=== PATIENT | female | born 1935 | race Caucasian/White ===

== ENCOUNTER 2023-09-11 18:36 | Inpatient (IN) | payer MEDICARE, OTHER, SELFPAY ==
[2023-09-11] VITALS (9 sets, daily range): BP systolic 114–178; BP diastolic 62–77; BMI 20.7; BMI 22.0
[2023-09-11 12:15] LABS: % Basophils 0.3 % (0-2); % Eosinophils 0.8 % (0-6); % Immature Granulocytes 0.3 % (0-0.5); % Lymphocytes 5.8 % (20.5-51.1); % Monocytes 4.8 % (1.7-9.3); Absolute Eosinophils 0.1 10^3/uL (0-0.7); Absolute Lymphocytes 0.5 10^3/uL (1.2-3.4); Absolute Monocytes 0.4 10^3/uL (0.1-0.6); Absolute Neutrophils 7.8 10^3/uL (1.4-6.5); Hematocrit 30.4 % (37.0-47.0); Hemoglobin 9.9 g/dL (12.0-16.0); Mean Corp Hgb Conc. 32.6 g/dL (33.0-37.0); Mean Corpuscular Hgb 31.4 pg (27.0-31.0); Mean Corpuscular Volume 96.5 fL (81.0-99.0); Mean Platelet Volume 9.6 fL (7.4-10.4); Nucleated Red Blood Cells % 0 %; Platelet Count 273 10^3/uL (130-400); Red Blood Cell Count 3.15 10^6/uL (4.20-5.40); Red Cell Dist. Width 15.4 % (11.5-14.5); White Blood Cell Count 8.8 10^3/uL (4.8-10.8)
[2023-09-11 12:31] LABS: INR 0.99; PT 12.9 Sec (11.4-14.6)
[2023-09-11 12:34] LABS: ALT (SGPT) 17 U/L (0-35); AST (SGOT) 32 U/L (14-36); Albumin 3.9 g/dl (3.5-5.0); Alkaline Phosphatase 73 U/L (38-126); Blood Urea Nitrogen 26 mg/dl (7-17); Calcium 9.3 mg/dl (8.4-10.2); Carbon Dioxide 28 mmol/L (22-30); Chloride 105 mmol/L (98-107); Glucose 131 mg/dl (70-99); Potassium 5.4 mmol/L (3.5-5.1); Sodium 137 mmol/L (135-145); Total Bilirubin 0.3 mg/dl (0.2-1.3); Total Protein 6.5 g/dl (6.3-8.2); eGFR 40.05
--- NOTE | 2023-09-11 14:09 | ED.GENMED ---
History of Present Illness
General
Chief Complaint: Rectal Bleeding
Source: patient and family
Exam Limitations: none
Time Seen by Provider: 09/11/23 13:50
Nursing documentation reviewed up to this point in time: agreed with
Travel History
Have you had any contact with someone who has COVID-19?: No
Do you have any symptoms of coronavirus? Fever > 100 degrees, chills, cough, shortness of breath, sore throat, loss of taste or smell, muscle aches, or headache?: No
History of Present Illness
History of Present Illness:
The patient is an 88-year-old female who was brought in by family for at least 2 episodes of bright red and maroon-colored blood coming from her bottom. This started at around 4:00 AM today. Patient reports that she was just admitted to [facility] about a week ago for similar symptoms but did not undergo colonoscopy. She reports at that time she was on Xarelto, however, she has not had Xarelto for at least a week. She is currently on Plavix. She denies any abdominal pain and
rectal pain. She reports it seems as though the bleeding has slowed down now.
Past History
Past History
ED Past Medical History: Other (Autoimmune hepatitis)
ED Past Surgical History: Gynecological and Orthopedic
Social History
Tobacco: Former smoker
Alcohol: Occasional
Drug: None
Personal: Other
Living: other
Employment: Other
Family History
Family History: Other
Review of Systems
Review of Systems
Allergies reviewed?: Yes
All Other Systems: ROS reviewed and negative except as documented in HPI and ROS
Constitutional: Reports fatigue
EENT: Reports no symptoms
Respiratory: Reports no symptoms
Cardiac: Reports no symptoms
ABD/GI: Reports other (Blood from rectum)
: Reports no symptoms
Musculoskeletal: Reports no symptoms
Skin: Reports no symptoms
Neurological: Reports no symptoms
Endocrine: Reports no symptoms
Hematologic/Lymphatic: Reports no symptoms
Psychiatric: Reports no symptoms
Phy Exam
Physical Exam
Physical Exam:
Physical Exam
General: no apparent distress, not acutely ill
Neck: supple. no meningeal signs. normal psoterior pharynx
Heart: s1/s2 regular rate and rhythm, no murmur. equal radial pulses.
Lungs: no acute respiratory distress. clear bilaterally
Abdomen: normal bowel sounds. not tender. no CVAT. On rectal exam, there is no active bleeding but dried dark red blood around perirectal area
Neuro: alert and oriented. no focal neurological deficits
Skin: no rash
Psychiatric: well kept. interactive and cooperative
Extremities: no edema. no calf tenderness. negative homans. good distal pulses
Course
Orders/Labs/Results
Orders:
Orders
09/11/23 11:55
Type+Screen Urgent
Complete Blood Count/With Diff Urgent
Comprehensive Metabolic Panel Urgent
PT/INR [Prothrombin Time] Urgent
09/11/23 13:56
Electrocardiogram (*1) Urgent
Reason for Study: Abdominal Pain
EKG- Treatment ONCE
09/11/23 18:10
Admit/Transfer Patient As Directed
Co-Sign Provider:
Level of Care: Inpatient admission
Assign to:: Telemetry
Physician / Group: Tish Dutta
Diagnosis: GI bleed suspected Diverticular
Reason for Telemetry: Arrhythmia
Date to Stop Telemetry: 09/14/23
Time to Stop Telemetry: 11:00
Reason for Hospitalization: GI bleed suspected Diverticular
Expected length of stay greater than two midnights?: Yes
ELOS- Estimated Length of Stay in days: 2
I certify the patient meets the requirements for IP care: Yes
09/11/23 18:13
Code Status As Directed
Resuscitation Status: Full Code
09/14/23 11:00
DC Protocol for Telemetry ONCE
Abnormal Lab Results
09/11/23
11:55
RBC 3.15 L 10^6/uL
(4.20-5.40)
Hgb 9.9 L g/dL
(12.0-16.0)
Hct 30.4 L %
(37.0-47.0)
MCH 31.4 H pg
(27.0-31.0)
MCHC 32.6 L g/dL
(33.0-37.0)
RDW 15.4 H %
(11.5-14.5)
Absolute Neuts (auto) 7.8 H 10^3/uL
(1.4-6.5)
Absolute Lymphs (auto) 0.5 L 10^3/uL
(1.2-3.4)
Neutrophils % 88.0 H %
(42.2-75.2)
Lymphocytes % 5.8 L %
(20.5-51.1)
Potassium 5.4 H mmol/L
(3.5-5.1)
BUN 26 H mg/dl
(7-17)
Creatinine 1.3 H mg/dL
(0.6-1.0)
Glucose 131 H mg/dl
(70-99)
09/11/23 11:55
09/11/23 11:55
Vital Signs
Initial and Last Documented VS:
Initial Vital Signs
Temp Pulse Resp BP Pulse Ox
98.4 F 79 16 127/65 98
09/11/23 11:41 09/11/23 11:41 09/11/23 11:41 09/11/23 11:41 09/11/23 11:41
Last Documented Vital Signs
Temp Pulse Resp BP Pulse Ox
98 F 67 19 178/77 98
09/11/23 14:37 09/11/23 18:00 09/11/23 18:00 09/11/23 15:00 09/11/23 15:30
MDM/Problems Addressed
Differential Diagnosis Includes:
Hemorrhoidal bleed, diverticular bleed, upper GI bleed
MDM/Problems Addressed:
Patient presents with acute rectal bleed
Acute Exacerbation and/or Progression of Chronic Illness:
Patient is acutely hypertensive, however, there is no sign of neurological deficit or CHF
Acute Exacerbation and/or Progression of Chronic Illness: HTN
*Pulse Oximetry
Patient hypoxic: no
*EKG
Interpreted by ED Provider?: Yes
Interpretation: abnormal
Comparison EKG: no comparison EKG present
Rate: normal
Rhythm: sinus
[place]: left axis deviation
Interval: normal interval and first degree heart block
QRS Pattern: left vent hypertrophy
Ischemia: non-specific ST changes
*Engineering Intern Interpretation
Rate: normal
Interpretation: normal
Rhythm: sinus
*Critical Care Note
Total Time (30-74mins, 75-104mins- exclusive of procedures): Not Applicable
Data Reviewed
Review of Other/Old Records Reveals: Other (Office visit reviewed from Greg Rainey primary care doctor from today which explained that patient had 2 episodes of bright red rectal bleeding.)
Source: patient and family
Patient Management
Discussion with other providers: Hospitalist and Other (Radiology Aide on-call made aware of patient being admitted)
Escalation/DeEscalation of care consider admission/obs:
Patient admitted to the hospitalist for stable lower GI bleed
ED Attending Note
-
Portions of this chart may have been created with voice recognition software.� Occasional wrong word or��sound alike� substitutions may have occurred due to the inherent limitations of voice recognition software.
Discharge Plan
Departure
Patient Disposition: Admit
Date of Disposition: 09/11/23
Time of Disposition: 14:06
Presentation/result/management discussed w/ accepting MD/DO: Hospitalist
Patient with high blood pressure during this ER visit?: Yes
Condition: Good
Covid-19: Not Applicable
Discharge Problem:
Acute lower gastrointestinal bleeding
Interventions
Interventions:
*Risk Screen - Suicide Last Done: 09/11/23 11:41
*General Assessment Last Done: 09/11/23 11:41
*Neglect/Abuse Screening Last Done: 09/11/23 14:36
ED- Fall Risk Assessment Last Done: 09/11/23 14:36
*ED COVID-19 Vaccine History Last Done: 09/11/23 11:41
HS-Olqtkc-Tswqjzqunu Assessment Last Done: 09/11/23 14:39
ED- Cardiac Assessment Last Done: 09/11/23 14:39
ED- Pulmonary Assessment Last Done: 09/11/23 14:39
--- NOTE | 2023-09-11 14:45 | CON.GI ---
Addendum entered and electronically signed by Thomas Singletary MD 09/11/23 18:03:
I saw and examined the patient.
The PA's note was reviewed and I agree with the note.
Comment:
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 Pastrana at [place]) on Xarelto and Plavix with recent change last week with ASA and Plavix who
p/w painless hematochezia.� She had similar episode last week and was admitted at [place], CTA there was negative and pt was discharged after several day observation and anticoagulation regiment was changed to ASA 81mg/Plavix.
Impression / Rec:
1. Painless hematochezia - her symptoms are most consistent / suggestive of diveritcular hemorrhage, augmented by anticoagulation. Her last colonoscopy was remote (> 10 yrs prior). Hemodynamically stable, last hematochezia was several hours ago.
Hgb is ~10, which is near her baseline. No plan for endo eval at this time. If active hemorrhage occurs, then can do bleeding scan / IR embolization. Hold Plavix and change her regimen to ASA 325 mg as per [facility] vascular surgery while she's inpt,
will need DAPT upon discharge. If does ok with CLD can advance diet tomorrow.
Addendum entered and electronically signed by SALVATORE Crow 09/11/23 17:43:
discussed with Dr. dodge
Original Note:
Consultation
-
Date/Time Consultation Requested: 09/11/23 1430
Date/Time Consultation Performed: 09/11/23 1445
Requesting Provider: Lisy Foster MD
Performing Provider: SALVATORE Pierre, Thomas Singletary MD
Reason for Consultation: GI bleed
Medical History
Chief Complaint / HPI
Chief Complaint: GI bleed
History of Present Illness:
Pt is a 88yo presents with hx longstanding autoimmune hepatitis on Prednisone, breast CA with b/l mastectomy/chemo, neuropathy, diverticulosis, PAD with follow with Dr. Pastrana at [facility] and in clinical trial for surgical ? stent (clinical nurse tere
[phone]) on Xarelto and Plavix with recent change last week with ASA and Plavix. She was noted last week with large volume of red stool and went to [place]. CTA was negative and pt was discharged after several day observation and
anticoagulation regiment was changed as noted above. She now presents with 5-6 stools on 09/10 between 4am and 8 am large volumes and no stools for several hours after in ER. Last colonoscopy years ago did not recall findings.
She admits to occasional GERD with Prilosec use but otherwise denies dysphagia, nausea, vomiting, abdominal pain, or diarrhea. She typically has stool every 2-3 days. No prior EGD and colonoscopy years ago recalls as normal.
Past Medical History
Past Medical History: Cancer (breast CA with b/l mastectomy and chemo 2011) and Other (autoimmune hepatitis years ago on chronic prednisone, popliteal occlusion with stenting on lifelong Plavix/duel antiplatelet therapy, neuropathy, diverticular
disease, urinary incontinence, arthritis, macular degeneration, SARAH, vit D deficiency)
Past Surgical History: Gynecological (b/l mastectomy, hysterectomy) and Other (popliteal stent, 4 angiograms, transmet )
Social History
Tobacco: Former Smoker
Alcohol: Occasional (social )
Drug: None
Personal:
Living: With Family
Employment: Retired
Family History
Family History: Other (father with colon CA)
Allergies / Home Medications
Allergy/AdvReac Type Severity Reaction Status Date / Time
No Known Allergies Allergy Unverified 09/11/23 11:41
Medication Instructions Recorded
Afrin Nasal [place] 1 spray intranasal DAILYPRN PRN 09/11/23
nose bleeds
aspirin 81 mg tablet,delayed 81 mg PO DAILY 09/11/23
release
clopidogrel 75 mg tablet 75 mg PO QPM 09/11/23
ferrous sulfate 325 mg (65 mg 325 mg PO .SEE BELOW 09/11/23
iron) tablet (iron)
gabapentin 100 mg capsule 300 mg PO TID 09/11/23
omeprazole magnesium 20 mg 20 mg PO DAILY 09/11/23
tablet,delayed release (Prilosec
OTC)
prednisone 5 mg tablet 5 mg PO DAILY@1500 09/11/23
rosuvastatin 10 mg tablet 10 mg PO DAILY 09/11/23
sodium chloride 0.65 % nasal spray 2 spray intranasal BIDPRN PRN 09/11/23
aerosol (Saline Nasal) allergies
vit C 250 mg-vit E 90 mg-zinc 40 1 cap PO BID 09/11/23
mg-copper 1 [id number]
capsule (PreserVision AREDS-2)
Review of Systems
-
History Source: Patient and Family
Constitutional: Reports Weight Loss (few lbs )
EENT: Reports No Symptoms
Respiratory: Reports No Symptoms
Cardiac: Reports No Symptoms
Abdomen/GI: Reports Constipated and Bloody Stools
: Reports No Symptoms
Musculoskeletal: Reports No Symptoms
Skin: Reports No Symptoms
Neurological: Reports No Symptoms
Endocrine: Reports No Symptoms
Hematologic/Lymphatic: Reports Bleeding
Vital Signs
Temp Pulse Resp BP Pulse Ox
98 F 68 18 161/62 100
09/11/23 14:37 09/11/23 14:37 09/11/23 14:37 09/11/23 14:37 09/11/23 14:37
Physical Exam
Exam
General: Well Developed, Well Nourished and No Apparent Distress
HEENT: Normocephalic and Anicteric
Respiratory: Clear
Cardiac: Regular Rhythm
GI: Soft, Non Tender and Non Distended
Rectal: Other (dried red blood per ER eval)
Musculoskeletal: No Clubbing and No Cyanosis
Skin: Warm and Dry
Neuro: Awake, Alert and AO x 3
Psych: Calm
Results
WBC 8.8 10^3/uL (4.8-10.8) 09/11/23 11:55
Hgb 9.9 g/dL (12.0-16.0) L 09/11/23 11:55
Hct 30.4 % (37.0-47.0) L 09/11/23 11:55
MCV 96.5 fL (81.0-99.0) 09/11/23 11:55
Plt Count 273 10^3/uL (130-400) 09/11/23 11:55
Absolute Neuts (auto) 7.8 10^3/uL (1.4-6.5) H 09/11/23 11:55
PT 12.9 Sec (11.4-14.6) 09/11/23 11:55
INR 0.99 09/11/23 11:55
Sodium 137 mmol/L (135-145) 09/11/23 11:55
Potassium 5.4 mmol/L (3.5-5.1) H 09/11/23 11:55
Chloride 105 mmol/L (98-107) 09/11/23 11:55
Carbon Dioxide 28 mmol/L (22-30) 09/11/23 11:55
BUN 26 mg/dl (7-17) H 09/11/23 11:55
Creatinine 1.3 mg/dL (0.6-1.0) H 09/11/23 11:55
Calcium 9.3 mg/dl (8.4-10.2) 09/11/23 11:55
Total Bilirubin 0.3 mg/dl (0.2-1.3) 09/11/23 11:55
AST 32 U/L (14-36) 09/11/23 11:55
ALT 17 U/L (0-35) 09/11/23 11:55
Alkaline Phosphatase 73 U/L (38-126) 09/11/23 11:55
Diagnostic Image Results:
09/03 CTA neg
Prior GI Procedures:
EGD: none
Colonoscopy: last 10 years ago recalls as normal
Assessment / Plan
-
Pt is a 88yo presents with hx longstanding autoimmune hepatitis on Prednisone, breast CA with b/l mastectomy/chemo, neuropathy, diverticulosis, PAD with follow with Dr. Pastrana at [facility] and in clinical trial for surgical ? stent (clinical nurse tere
[phone]) on Xarelto and Plavix with recent change last week with ASA and Plavix with GI bleed. She was noted last week with large volume of red stool and went to [place]. CTA was negative and pt was discharged after several day observation
and anticoagulation regiment was changed to ASA 81mg/Plavix. She now presents with 5-6 stools on 09/10 between 4am and 8 am large volumes and no stools for several hours after in ER. Last colonoscopy years ago did not recall findings.
-rectal bleeding likely recurrent diverticular bleed
-acute on chronic anemia(baseline 10-11) with blood loss on Iron prior to admission
-PAD with chronic popliteal stent with chronic popliteal stent followed at [facility]
-mild elevated creat (baseline 1-1.2, BUN 21-26)
other medical problems:
-hx transmet amputation
-autoimmune hepatitis with chronic prednisone
breast CA with prior chemo/ b/l mastectomy
-neuropathy
-macular degeneration
PLAN:
etiology of GI Bleeding with concern for diverticular bleed with large volume bleeding last week then recurrence this am vs other
no stools for last several hours
repeat CTA if any recurrent bleeding if + then angio if neg consider colonoscopy if bleeding persists
if bleeding stops then OP colonoscopy
trend hbg transfuse as needed
Protonix 40mg daily
reviewed with [facility] from vascular surgery at [phone]--- pt needs lifelong duel antiplatelet therapy would give ASA 325mg daily while in hospital with bleeding, when stops need to resume Plavix and ASA 81mg daily
ok for clear diet
updated daughter at bedside
-
-
Thank you for consultation and allowing me to participate in the patient's care. Please call the wholesale diamond broker GI physician during the after hours with any questions or concerns.
--- NOTE | 2023-09-11 16:59 | HPS.HSE ---
Family Physician
-
Family Physician: Noe Blake
Chief Complaint
-
Painless hematochezia
History of Present Illness
88 female autoimmune hepatitis prednisone breast cancer bilateral mastectomy completed chemo neuropathy diverticulosis peripheral arterial disease status post popliteal stent aspirin Plavix presents with painless bloody bowel movements intermittent
persistent over the past weeks to months, last admitted in [facility] a few weeks ago for same issue, CTA negative, discharged after several day observation. Bloody bowel movements since resolved during ED evaluation. Mild anemia noted otherwise
vital signs stable, no hypotension or tachycardia. Denies fever chills coughing sneezing shortness of breath nausea vomiting.
Medical History
Past Medical History
Past Medical History: Reports Other (as above)
Past Surgical History: Reports Other (as above)
Social History
Tobacco: Former Smoker
Alcohol: Occasional
Drug: None
Living: With Family
Family History
Family History: Not pertinent (reviewed)
Allergies / Home Medications
Allergies reflects when Allergies were last updated in [facility].
Home Medications with original date entered in [facility]
Allergy/Medication List:
Allergies
Allergy/AdvReac Type Severity Reaction Status Date / Time
No Known Allergies Allergy Unverified 09/11/23 11:41
Home Medications
Afrin Nasal [place] 1 spray intranasal DAILYPRN PRN nose bleeds 09/11/23
aspirin 81 mg tablet,delayed release 81 mg PO DAILY Blood Clot Prevention/Tx 09/11/23
clopidogrel 75 mg tablet 75 mg PO QPM Blood Clot Prevention/Tx 09/11/23
ferrous sulfate 325 mg (65 mg iron) tablet (iron) 325 mg PO .SEE BELOW Supplement 09/11/23
gabapentin 100 mg capsule 300 mg PO TID pain 09/11/23
omeprazole magnesium 20 mg tablet,delayed release (Prilosec OTC) 20 mg PO DAILY Gastrointestinal Issue 09/11/23
prednisone 5 mg tablet 5 mg PO DAILY@1500 Anti-Inflammatory 09/11/23
rosuvastatin 10 mg tablet 10 mg PO DAILY High Cholesterol 09/11/23
sodium chloride 0.65 % nasal spray aerosol (Saline Nasal) 2 spray intranasal BIDPRN PRN allergies 09/11/23
vit C 250 mg-vit E 90 mg-zinc 40 mg-copper 1 [id number] capsule (PreserVision AREDS-2) 1 cap PO BID Supplement 09/11/23
Review of Systems
-
A 12 point ROS was completed and negative except as noted: Yes
Constitutional: Reports Other (as below)
Physical Exam
Vital Signs
Vital Signs
Temp Pulse Resp BP Pulse Ox
98 F 70 15 178/77 98
09/11/23 14:37 09/11/23 15:30 09/11/23 15:30 09/11/23 15:00 09/11/23 15:30
Physical Exam
General: Other (as below)
Laboratory Results
-
09/11/23 11:55
09/11/23 11:55
Laboratory Results
PT 12.9 Sec (11.4-14.6) 09/11/23 11:55
INR 0.99 09/11/23 11:55
Total Bilirubin 0.3 mg/dl (0.2-1.3) 09/11/23 11:55
AST 32 U/L (14-36) 09/11/23 11:55
ALT 17 U/L (0-35) 09/11/23 11:55
Alkaline Phosphatase 73 U/L (38-126) 09/11/23 11:55
Impression/Plan
-
ROS
General: Denies fever chills night sweats unexpected weight loss
Neuro: Denies seizure shaking loss of consciousness dizziness vertigo
Psych: denies depression hallucinations confusion manic episodes
Endocrine: Denies polyuria polydipsia polyphagia heat/cold intolerance
HEENT: Denies blindness visual disturbances epistaxis
Pulmonary: denies coughing hemoptysis sneezing sob dyspnea on exertion
Cardiovascular: denies chest pain palpitations leg swelling
Hematology: denies signs symptoms of anemia easy bruising/bleeding
Gastrointestinal: Reports painless bloody bowel movements since resolved
Genito-Urinary: denies retention incontinence dysuria
Musculoskeletal: denies joint pain weakness
Dermatology: denies rash laceration bruising
Physical Exam
General: No pallor, cyanosis, or jaundice.
HEENT: Throat clear. PERRLA Normocephalic atraumatic
NECK: Supple. No JVD Carotid Bruits
RESPIRATORY: Lungs clear to auscultation. No crackles wheezes stridor
CVS: S1, S2 normal. RRR. No murmur, rub or gallop.
ABDOMEN: Soft, non-tender. No distension. BS+/normal.
EXTREMITIES: No peripheral cyanosis or edema, left leg shorter than right leg chronic as per patient
CLOUD ARCHITECT: AOx3. No focal deficits.
IMPRESSION:
88 female autoimmune hepatitis prednisone breast cancer bilateral mastectomy completed chemo neuropathy diverticulosis peripheral arterial disease status post popliteal stent aspirin Plavix presents with painless bloody bowel movements intermittent
persistent over the past weeks to months, last admitted in [facility] a few weeks ago for same issue, CTA negative, discharged after several day observation. Bloody bowel movements since resolved during ED evaluation. Mild anemia noted otherwise
vital signs stable, no hypotension or tachycardia. Denies fever chills coughing sneezing shortness of breath nausea vomiting.
PLAN:
#Hematochezia GI bleed likely diverticular
Telemetry admit
CTA patient develops recurrent active bleeding
Monitor H&H transfusion goal>8 due to concern active bleeding
GI discussed with [facility] who recommended 325 mg daily while in hospital for possible intervention, to resume aspirin and Plavix on discharge
Patient reports unable to tolerate the 325 mg formulation, using 81 mg enteric-coated x 4 for total 324 mg
Clear liquid diet for now
GI eval appreciated
#Hypertension
Hydralazine prn SBP>140 or DBP>100
#Autoimmune hepatitis
Continue home Protonix
#Neuropathy
Continue home gabapentin
GI prophylaxis Protonix
DVT prophylaxis mechanical and chemical contraindicated due to bleeding and peripheral arterial disease, encourage ambulation fall precautions
Meds reconciled and resumed as appropriate
Full code
Discussed with patient and her daughters
I spent a total of 80 minutes with the patient or on the floor. More than 50% of this time involved counseling and coordination of care.
--- NOTE | 2023-09-11 22:00 | PTCARENOTE ---
Received pt from ED, AAOx3 pt ambulated from stretcher to bed with walker. No complaints of pain
[2023-09-11] MEDS: NEURONTIN 300 MG PO (22:06)
[2023-09-12] VITALS (7 sets, daily range): BP systolic 116–165; BP diastolic 57–77; PULSE 74; O2SAT 97
[2023-09-12 07:09] LABS: Hematocrit 29.9 % (37.0-47.0); Hemoglobin 9.9 g/dL (12.0-16.0); Mean Corp Hgb Conc. 33.1 g/dL (33.0-37.0); Mean Corpuscular Hgb 30.8 pg (27.0-31.0); Mean Corpuscular Volume 93.1 fL (81.0-99.0); Mean Platelet Volume 9.6 fL (7.4-10.4); Platelet Count 262 10^3/uL (130-400); Red Blood Cell Count 3.21 10^6/uL (4.20-5.40); Red Cell Dist. Width 15.2 % (11.5-14.5); White Blood Cell Count 4.3 10^3/uL (4.8-10.8)
[2023-09-12 07:49] LABS: Blood Urea Nitrogen 23 mg/dl (7-17); Carbon Dioxide 27 mmol/L (22-30); Chloride 108 mmol/L (98-107); Estimated Creatinine Clearance 30 ml/min; Glucose 78 mg/dl (70-99); Magnesium 2.3 mg/dl (1.6-2.3); Sodium 138 mmol/L (135-145); eGFR 48.94
--- NOTE | 2023-09-12 08:00 | W.PN.HOSP.TC ---
Today's Communication/Plan
-
monitor H&H
advance diet low residue
ASA plavix home regimen to restart tomorrow
Possible home w/ home services vs no needs when ready for discharge.
Assessment / Plan
Assessment / Plan
Physical Exam
General: No pallor, cyanosis, or jaundice.
HEENT: Throat clear. PERRLA Normocephalic atraumatic
NECK: Supple. No JVD Carotid Bruits
RESPIRATORY: Lungs clear to auscultation. No crackles wheezes stridor
CVS: S1, S2 normal. RRR.� No murmur, rub or gallop.
ABDOMEN: Soft, non-tender. No distension. BS+/normal.
EXTREMITIES: No peripheral cyanosis or edema, left leg shorter than right leg chronic as per patient
BLOCK SAW OPERATOR: AOx3. No focal deficits.
IMPRESSION:
88 female autoimmune hepatitis prednisone breast cancer bilateral mastectomy completed chemo neuropathy diverticulosis peripheral arterial disease status post popliteal stent aspirin Plavix presents with painless bloody bowel movements intermittent
persistent over the past weeks to months, last admitted in [facility] a few weeks ago for same issue, CTA negative, discharged after several day observation.� Bloody bowel movements since resolved during ED evaluation.� Mild anemia noted otherwise
vital signs stable, no hypotension or tachycardia.� Denies fever chills coughing sneezing shortness of breath nausea vomiting.
PLAN:
#Hematochezia GI bleed likely diverticular
Telemetry admit
CTA patient develops recurrent active bleeding
Monitor H&H transfusion goal>8 due to concern active bleeding
GI discussed with [facility] who recommended 325 mg daily while in hospital for possible intervention, to resume aspirin and Plavix on discharge
Bleeding since resolved
Clear liquid diet advanced to low residue
GI eval appreciated
#Hypertension
Hydralazine prn SBP>140 or DBP>100
#Autoimmune hepatitis
Continue home Prednisone
#Neuropathy
Continue home gabapentin
GI prophylaxis Protonix
DVT prophylaxis mechanical and chemical contraindicated due to bleeding and peripheral arterial disease, encourage ambulation fall precautions
Meds reconciled and resumed as appropriate
Full code
PT appreciated HH vs no needs
I spent a total of � 52 � minutes with the patient or on the floor. More than 50% of this time involved counseling and coordination of care.
Anticipated Discharge: 24 - 48 hours
Subjective/Interval History
-
Date of Service: September 12, 2023
Reports feeling well, resolution of bleeding. Denies new acute issues at this time.
Objective Data
-
Labs:
Laboratory Results
09/12/23
06:38
WBC 4.3 L
Hgb 9.9 L
Hct 29.9 L
Plt Count 262
Sodium 138
Potassium 4.0 D
Chloride 108 H
Carbon Dioxide 27
BUN 23 H
Creatinine 1.1 H
Glucose 78
Calcium 9.0
Vital Signs:
Vital Signs
Temp Pulse Resp BP Pulse Ox
97.7 F 68 18 137/68 97
09/12/23 03:24 09/12/23 03:24 09/12/23 03:24 09/12/23 03:24 09/12/23 03:24
[2023-09-12] MEDS: NEURONTIN 300 MG PO ×3 (08:51→19:57)
[2023-09-12] MEDS: ASPIRIN ENTERIC COATED 325 MG PO (08:51)
[2023-09-12] MEDS: PROTONIX 40 MG PO (08:51)
[2023-09-12] MEDS: CRESTOR 10 MG PO (08:51)
[2023-09-12] MEDS: OCEAN, SALINE MIST 2 SPRAYS NASAL (08:51)
[2023-09-12] MEDS: FEOSOL 325 MG PO (08:51)
--- NOTE | 2023-09-12 13:17 | W.PN.GI.CBS2 ---
Today's Communication / Plan
-
ok with low res diet, pt can be d/c home if no bleeding occurs after DAPT restarted, GI s/o.
Assessment / Plan
-
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 Pastrana at [facility]) on Xarelto and Plavix with recent change last week with ASA and Plavix who
p/w painless hematochezia.� She had similar episode last week and was admitted at [facility], CTA there was negative and pt was discharged after several day observation and anticoagulation regiment was changed to ASA 81mg/Plavix.
Her symptoms are most consistent / suggestive of diverticular hemorrhage, augmented by anticoagulation.� Her last colonoscopy was remote (> 10 yrs prior).� Hemodynamically stable, last hematochezia was several hours ago.� Hgb is ~10, which is near
her baseline.� No plan for endo eval at this time.� If active hemorrhage occurs, then can do bleeding scan / IR embolization.� Hold Plavix and change her regimen to ASA 325 mg as per [facility] while she's inpt, will need DAPT
(ASA/plavix) upon discharge.�
No bleed o/n, no BM. Diet advanced to low residue today. If no bleeding occurs after putting pt back on ASA/plavix, can d/c home. Will s/o, pls call with questions.
Total Time Spent with Patient (in minutes): 35
Subjective
Subjective
Date of Service: September 12, 2023
No BM o/n.
Objective
Data Reviewed
Laboratory Data:
Laboratory Results
09/12/23 06:38
09/12/23 06:38
Laboratory Results
PT 12.9 Sec (11.4-14.6) 09/11/23 11:55
INR 0.99 09/11/23 11:55
Magnesium 2.3 mg/dl (1.6-2.3) 09/12/23 06:38
Total Bilirubin 0.3 mg/dl (0.2-1.3) 09/11/23 11:55
AST 32 U/L (14-36) 09/11/23 11:55
ALT 17 U/L (0-35) 09/11/23 11:55
Alkaline Phosphatase 73 U/L (38-126) 09/11/23 11:55
Vital Signs and I&O:
Vital Signs
Temp Pulse Resp BP Pulse Ox
98.5 F 71 14 137/65 97
09/12/23 11:49 09/12/23 11:49 09/12/23 11:49 09/12/23 11:49 09/12/23 11:49
[2023-09-12] MEDS: DELTASONE 5 MG PO (15:17)
[2023-09-13 03:24] VITALS: BP 149/68
[2023-09-13 07:04] LABS: Hematocrit 30.2 % (37.0-47.0); Hemoglobin 10.1 g/dL (12.0-16.0); Mean Corp Hgb Conc. 33.4 g/dL (33.0-37.0); Mean Corpuscular Hgb 31.5 pg (27.0-31.0); Mean Corpuscular Volume 94.1 fL (81.0-99.0); Mean Platelet Volume 9.8 fL (7.4-10.4); Platelet Count 254 10^3/uL (130-400); Red Blood Cell Count 3.21 10^6/uL (4.20-5.40); Red Cell Dist. Width 15.1 % (11.5-14.5); White Blood Cell Count 5.7 10^3/uL (4.8-10.8)
[2023-09-13 07:28] LABS: Blood Urea Nitrogen 25 mg/dl (7-17); Calcium 9.1 mg/dl (8.4-10.2); Carbon Dioxide 26 mmol/L (22-30); Chloride 108 mmol/L (98-107); Estimated Creatinine Clearance 28 ml/min; Glucose 88 mg/dl (70-99); Magnesium 2.3 mg/dl (1.6-2.3); Potassium 4.1 mmol/L (3.5-5.1); Sodium 137 mmol/L (135-145); eGFR 44.08
[2023-09-13 07:30] VITALS: BP 144/68
--- NOTE | 2023-09-13 07:34 | W.PN.HOSP.TC ---
Today's Communication/Plan
-
discharge
Assessment / Plan
Assessment / Plan
Physical Exam
General: No pallor, cyanosis, or jaundice.
HEENT: Throat clear. PERRLA Normocephalic atraumatic
NECK: Supple. No JVD Carotid Bruits
RESPIRATORY: Lungs clear to auscultation. No crackles wheezes stridor
CVS: S1, S2 normal. RRR.� No murmur, rub or gallop.
ABDOMEN: Soft, non-tender. No distension. BS+/normal.
EXTREMITIES: No peripheral cyanosis or edema, left leg shorter than right leg chronic as per patient
[employer]: AOx3. No focal deficits.
IMPRESSION:
88 female autoimmune hepatitis prednisone breast cancer bilateral mastectomy completed chemo neuropathy diverticulosis peripheral arterial disease status post popliteal stent aspirin Plavix presents with painless bloody bowel movements intermittent
persistent over the past weeks to months, last admitted in [facility] a few weeks ago for same issue, CTA negative, discharged after several day observation.� Bloody bowel movements since resolved during ED evaluation.� Mild anemia noted otherwise
vital signs stable, no hypotension or tachycardia.� Denies fever chills coughing sneezing shortness of breath nausea vomiting.
PLAN:
#Hematochezia GI bleed likely diverticular
Telemetry admit
H&H stable no CTA necessary during stay
GI discussed with [facility] who recommended 325 mg daily while in hospital for possible intervention, to resume aspirin and Plavix on discharge
Bleeding since resolved
Clear liquid diet advanced to low residue, tolerating,
GI eval appreciated
#Intermittent elevated pressures, possible HTN
Hydralazine prn SBP>140 or DBP>100
BP relatively well controlled throughout stay with intermittent isolated elevated values
#Autoimmune hepatitis
Continue home Prednisone
#Neuropathy
Continue home gabapentin
GI prophylaxis Protonix
DVT prophylaxis mechanical and chemical contraindicated due to bleeding and peripheral arterial disease, encourage ambulation fall precautions
Meds reconciled and resumed as appropriate
Full code
PT appreciated HH vs no needs
Medically stable for discharge today home with home services vs no needs and outpatient follow up recommendations.
Discussed with patient and her daughters at bedside
Total Time Preparing Discharge ___45____ minutes including examination of the patient, summary of the hospital stay, instructions for continuing care to all relevant caregivers; and preparation of discharge records, prescriptions, and referral
forms if necessary.
Anticipated Discharge: Today
Subjective/Interval History
-
Date of Service: September 13, 2023
No acute distress sitting up comfortably in bed. Denies new bloody bowel movements but also endorses constipation. Otherwise reports feeling well. Eager to go home
Objective Data
-
Labs:
Laboratory Results
09/13/23
06:41
WBC Pending
Hgb Pending
Hct Pending
Plt Count Pending
Sodium 137
Potassium 4.1
Chloride 108 H
Carbon Dioxide 26
BUN 25 H
Creatinine 1.2 H
Glucose 88
Calcium 9.1
Vital Signs:
Vital Signs
Temp Pulse Resp BP Pulse Ox
97.8 F 77 17 124/83 97
09/13/23 07:22 09/13/23 07:22 09/13/23 07:22 09/13/23 07:22 09/13/23 07:22
I&O
09/12/23 09/13/23 09/14/23
05:59 06:59 06:59
Intake Total
Balance
[2023-09-13] MEDS: NEURONTIN 300 MG PO ×2 (08:59→15:13)
[2023-09-13] MEDS: CRESTOR 10 MG PO (08:59)
[2023-09-13] MEDS: FEOSOL 325 MG PO (08:59)
[2023-09-13] MEDS: ASPIR LOW (ENTERIC COATED) 81 MG PO (08:59)
[2023-09-13] MEDS: PROTONIX 40 MG PO (08:59)
[2023-09-13 11:39] VITALS: BP 118/53
[2023-09-13] MEDS: DELTASONE 5 MG PO (15:13)
--- NOTE | 2023-09-13 15:25 | W.DCSUMMARY ---
Discharge Summary
Discharge Data
Date of Admission: 09/11/23
Date of Discharge: 09/13/23
-
Pending Results: No
Hospital Course
88F autoimmune hepatitis prednisone breast cancer bilateral mastectomy completed chemo neuropathy diverticulosis peripheral arterial disease status post popliteal stent aspirin Plavix presented with painless bloody bowel movements intermittent
persistent over the past weeks to months, last admitted in [facility] a few weeks ago for same issue, CTA negative, discharged after several day observation.� Bloody bowel movements since resolved during ED evaluation.� Mild anemia noted otherwise
vital signs stable, no hypotension or tachycardia.� Denied fever chills coughing sneezing shortness of breath nausea vomiting. Hematochezia GI bleed likely diverticular. H&H stable no CTA necessary during stay. GI discussed with [facility]
surgery who recommended 325 mg daily while in hospital for possible intervention, to resume aspirin and Plavix on discharge. Bleeding since resolved. Clear liquid diet advanced to low residue, tolerated well. Medically stable, patient was
discharged home with home services and outpatient follow up recommendations.
Discharge Plan
-
Patient Disposition: Home with Home Care
Discharge Diagnosis/Procedures: Diverticular Bleed since resolved
Condition: Fair
Diet: Low Residue
Additional Diets: continue with low residue diet for 1 week then advance as tolerated
Activity: As tolerated
Driving Restrictions: As prior to admission
Bathing Restrictions: None
Blood Work: Please repeat CBC and BMP with primary care provider in 1 week of discharge
Activity Restrictions/Additional Instructions:
Please follow up with primary care provider in 1 week of discharge and your GI doctor in 2-4 weeks of discharge. If you do not already follow with a GI specialist, a referral has been provided.
Laxatives have been prescribed to help prevent straining, these are available over the counter.
Please take medications as prescribed/recommended and follow up with primary care provider and/or other healthcare provider involved in your care for refills and/or further adjustments to your medication regimen as necessary.
Instructions: Low Fiber Diet
Referrals:
Noe Blake MD [Family Provider] - in one week
Thomas Singletary MD [Active] - in two to four weeks
Prescriptions:
New
sennosides-docusate sodium [Senokot-S] 8.6-50 mg tablet
1 tab-cap PO BID 7 Days Qty: 14 0RF
Rx Instructions:
hold if diarrhea
polyethylene glycol 3350 [Miralax] 17 gram/dose powder
4 g PO DAILY PRN (Reason: Constipation) Qty: 119 0RF
Continued
Afrin Nasal Blair
1 spray intranasal DAILYPRN PRN (Reason: nose bleeds)
prednisone 5 mg Tablet
5 mg PO DAILY@1500
clopidogrel 75 mg Tablet
75 mg PO QPM
aspirin 81 mg Tablet,Delayed Release (Dr/Ec)
81 mg PO DAILY
Patient Comments:
09/11/2023, per pt., she started taking this med. yesterday.
ferrous sulfate [iron] 325 mg (65 mg iron) Tablet
325 mg PO .SEE BELOW
Patient Comments:
09/11/2023, pt. unsure if this is morning or evening med.
gabapentin 100 mg Capsule
300 mg PO TID
Saline Nasal 0.65 % Aerosol,Blair
2 spray INTRANASAL BIDPRN PRN (Reason: allergies)
rosuvastatin 10 mg Tablet
10 mg PO DAILY
omeprazole magnesium [Prilosec OTC] 20 mg Tablet,Delayed Release (Dr/Ec)
20 mg PO DAILY
PreserVision AREDS-2 250-90-40-1 mg Capsule
1 cap PO BID
Discharge Orders:
Discharge Patient (As Directed); Ordered 09/13/23
Ordered By: Tish Dutta
Discharge Date and Time
Discharge Date/Time: 09/13/23 16:33
[2023-09-13 16:11] VITALS: BP 116/60
--- NOTE | 2023-09-13 16:12 | CM ---
CM following re: d/c planning
Chart reviewed
CM met with the patient at bedside; IA completed
Pt and her spouse reside at [facility] apartment on the 2nd floor with elevator access and no WILBER
MANAGER [place] patient reports independence at baseline
Pt has no previous SNF hx, does have a spc, r/w, & w/c for use if needed and has VN hx with [facility]betzy[facility]
Pt confirms prescription coverage and rx's are filled at [facility] the [facility]
Pt PCP-Dr Blake
Pt has been cleared medically for d/c and post d/c recommendation is for VN
CM place a referral for [facility] via care port and referral accepted
IMM also reviewed and copy provided
Pt daughter is at bedside to transport patient home at time of d/c
PLAN; d/c home with [facility] VN
== END 2023-09-13 16:33 | disposition home health service (06) | DRG 379 ==
LOC: 4 EAST ACU 18:36
PROVIDERS: Emergency Medicine; ADMITTING PHYSICIAN Internal Medicine; CONSULT PHYSICIAN Internal Medicine Gastroenterology; EMERGENCY PHYSICIAN Emergency Medicine; FAMILY PHYSICIAN Internal Medicine Geriatric Medicine
DX: K57.91 Diverticulosis of intestine, part unspecified, without perforation or abscess with bleeding (principal); K75.4 Autoimmune hepatitis; I10 Essential (primary) hypertension; G62.0 Drug-induced polyneuropathy; Z85.3 Personal history of malignant neoplasm of breast; Z79.82 Long term (current) use of aspirin; Z87.891 Personal history of nicotine dependence
CPT/HCPCS: 80048; 80053; 83735; 85025; 85027; 85610; 86850; 86900; 86901; 93005; 97162; 99284

== ENCOUNTER 2024-04-10 21:07 | Observation (INO) | payer MEDICARE, OTHER, SELFPAY ==
[2024-04-10 15:54] VITALS: BP 178/77; BMI 22.1
[2024-04-10 16:00] VITALS: BP 178/77
[2024-04-10] MEDS: NSS 1000 IV ×2 (16:16→18:10)
[2024-04-10 16:26] LABS: % Basophils 0.5 % (0-2); % Eosinophils 1.7 % (0-6); % Immature Granulocytes 0.4 % (0-0.5); % Lymphocytes 8.5 % (20.5-51.1); % Monocytes 10.7 % (1.7-9.3); % Neutrophils 78.2 % (42.2-75.2); Absolute Basophils 0.1 10^3/uL (0-0.2); Absolute Eosinophils 0.2 10^3/uL (0-0.7); Absolute Lymphocytes 0.8 10^3/uL (1.2-3.4); Absolute Monocytes 1.1 10^3/uL (0.1-0.6); Absolute Neutrophils 7.7 10^3/uL (1.4-6.5); Hematocrit 30.3 % (37.0-47.0); Hemoglobin 9.6 g/dL (12.0-16.0); Mean Corp Hgb Conc. 31.7 g/dL (33.0-37.0); Mean Corpuscular Volume 97.7 fL (81.0-99.0); Mean Platelet Volume 9.9 fL (7.4-10.4); Nucleated Red Blood Cells % 0 %; Platelet Count 248 10^3/uL (130-400); Red Cell Dist. Width 13.9 % (11.5-14.5); White Blood Cell Count 9.8 10^3/uL (4.8-10.8)
[2024-04-10 16:43] LABS: ALT (SGPT) 15 U/L (0-35); AST (SGOT) 29 U/L (14-36); Albumin 3.9 g/dl (3.5-5.0); Alkaline Phosphatase 61 U/L (38-126); Blood Urea Nitrogen 17 mg/dl (7-17); COVID-19 Antigen Negative (Negative); Calcium 9.9 mg/dl (8.4-10.2); Carbon Dioxide 24 mmol/L (22-30); Chloride 103 mmol/L (98-107); Estimated Creatinine Clearance 33 ml/min; Glucose 105 mg/dl (70-99); Potassium 3.9 mmol/L (3.5-5.1); Sodium 140 mmol/L (135-145); Total Bilirubin 0.2 mg/dl (0.2-1.3); Total Protein 6.4 g/dl (6.3-8.2); eGFR 54.87
[2024-04-10 17:00] VITALS: BP 189/93
--- NOTE | 2024-04-10 17:51 | ED.GENMED ---
History of Present Illness
General
Chief Complaint: Fever
Time Seen by Provider: 04/10/24 15:51
History of Present Illness
History of Present Illness:
88-year-old female with history of hyperlipidemia and PVD on Plavix presenting to the emergency department for generalized weakness and nausea and vomiting. Patient arrives with her daughters who report the past few days, patient has been feeling
nauseous. She has had overall decreased p.o. intake. They went to visit her today, patient started to have emesis which prompted them to call the medics. Patient denies any fall. Denies any cough or fever. Denies chest pain or difficulty
breathing. Denies any abdominal pain. Denies urinary complaints. Daughter notes that she had a little bit of stomach upset herself a few days ago. Patient lives at an independent living facility. No additional symptoms reported at this time.
Past History
Past History
ED Past Medical History: Other (Autoimmune hepatitis)
ED Past Surgical History: Gynecological and Orthopedic
Social History
Tobacco: Former smoker
Alcohol: Occasional
Drug: None
Personal: Other
Living: other
Employment: Other
Family History
Family History: Other
Phy Exam
Physical Exam
Physical Exam:
General: Well-appearing, dry mucous membranes
HEENT: protecting airway
Neck: appears supple
CV: Normal heart rate, regular rhythm, no evidence of cyanosis
Resp: No accessory muscle use, no increased work of breathing, lungs clear to auscultation bilaterally
Abd: Soft and non-distended, mild tenderness upper abdomen without rebound or guarding
Extremities: No deformities, no swelling, no erythema
Neuro: alert, no focal neurologic deficit
: deferred
Rectal: deferred
Psych: Normal affect
Skin: Intact
Course
Orders/Labs/Results
Orders:
Orders
04/10/24 Breakfast
Regular
At Your Request: Full Participation
Does patient need a safe tray?: No
04/10/24 16:15
CXR2 [CR Chest - 2 Views ] Urgent
Comment:
Reason For Exam: fever
04/10/24 16:16
0.9% Sodium Chloride 1000 ml [Nss] 1,000 ml IV BOLUS
04/10/24 16:17
COVID-19 Antigen Urgent
Source: Nasal Swab
Complete Blood Count/With Diff Urgent
Comprehensive Metabolic Panel Urgent
Lactic Acid Urgent
Influenza A+B Rapid Molecular Urgent
ART Source: Nasal Swab
Specimen Description:
04/10/24 18:02
CT Abd/pelvis W Iv Cont Urgent
Comment:
Reason For Exam: N/V
0.9% Sodium Chloride 1000 ml [Nss] 1,000 ml IV BOLUS
04/10/24 18:14
Acetaminophen [Tylenol] 325 mg .ROUTE .STK-MED ONE
Acetaminophen [Tylenol] 650 mg PO NOW STA
04/10/24 19:08
Urinalysis Reflex To Culture Urgent
Date Specimen was Collected: 04/10/24
Time Specimen was Collected: 19:07
04/10/24 20:53
Admit/Transfer Patient As Directed
Co-Sign Provider:
Level of Care: Observation services
Assign to:: Medical/Surgical
Physician / Group: Humberto
Diagnosis: Weakness, Viral GE
PRN Pain Medication Management As Directed
May give lesser potent ordered pain med per pt: Yes
preference::
Protocol:: Medication orders for pain may be administered in a
manner that supports deferring to patient preference
when the pt is:
- Requesting an ordered lesser potent pain medication.
Least to most potent pain medications are defined
as: acetaminophen < NSAID < tramadol < opioids
(morphine, oxycodone, hydromorphone).
- Requesting a lesser dose of the same medication IF
ORDERED.
- Requesting a less intrusive route of administration
if both routes are prescribed by the provider (PO <
IV).
04/10/24 20:55
Code Status As Directed
Resuscitation Status: Full Code
04/10/24 22:30
Acetaminophen [Tylenol] 650 mg PO Q4HPRN PRN
Lactated Ringers [Lr] 1,000 ml IV 100 mls/hr
Ondansetron Injectable [Zofran] 4 mg IV Q6HPRN PRN
04/10/24 22:30
Activity As Directed
Activity Level: Ambulate
With Assistance
I/O [Intake/ Output] As Directed
Frequency: Per unit guidelines
Orthostatic Vital Signs As Directed
Orthostatic VS Frequency: BID
Pneumatic Compression Sleeves As Directed
Type: Knee high
Vital Signs As Directed
Frequency: Per unit guidelines
Oxygen Therapy [O2 Therapy] [RESP] Routine
Titrate/Wean O2 to maintain O2 sat greater than (%): 94
Ot Eval And Treat Routine
PT Consult [Pt Eval And Treat] Routine
Activity Level: Ambulate
With Assistance
DX Deep Vein Thrombosis Video Routine
04/11/24 06:13
Basic Metabolic Panel IN AM
Complete Blood Count/No Diff IN AM
04/11/24 08:00
Aspirin Low Dose EC [Aspir Low (Enteric Coated)] 81 mg PO DAILY
Cholecalciferol (Vitamin D3) [VITAMIN D3 (cholecalciferol)] 25 mcg PO DAILY
Pantoprazole [Protonix] 40 mg PO DAILY
Rosuvastatin Calcium [Crestor] 10 mg PO DAILY
04/11/24 15:00
Prednisone [Deltasone] 5 mg PO DAILY@1500
04/11/24 18:00
Clopidogrel Bisulfate [Plavix] 75 mg PO QPM
Abnormal Lab Results
04/10/24 04/10/24
16:17 19:08
RBC 3.10 L 10^6/uL
(4.20-5.40)
Hgb 9.6 L g/dL
(12.0-16.0)
Hct 30.3 L %
(37.0-47.0)
MCHC 31.7 L g/dL
(33.0-37.0)
Absolute Neuts (auto) 7.7 H 10^3/uL
(1.4-6.5)
Absolute Lymphs (auto) 0.8 L 10^3/uL
(1.2-3.4)
Absolute Monos (auto) 1.1 H 10^3/uL
(0.1-0.6)
Neutrophils % 78.2 H %
(42.2-75.2)
Lymphocytes % 8.5 L %
(20.5-51.1)
Monocytes % 10.7 H %
(1.7-9.3)
Glucose 105 H mg/dl
(70-99)
Urine Ketones 1+ A
(Negative)
04/10/24 16:17
04/10/24 16:17
Vital Signs
Initial and Last Documented VS:
Initial Vital Signs
Temp Pulse Resp BP Pulse Ox
99.1 F 83 17 178/77 96
04/10/24 15:54 04/10/24 15:54 04/10/24 15:54 04/10/24 15:54 04/10/24 15:54
Last Documented Vital Signs
Temp Pulse Resp BP Pulse Ox
98.6 F 91 18 132/72 98
04/11/24 10:47 04/11/24 10:47 04/11/24 10:47 04/11/24 10:47 04/11/24 10:47
MDM/Problems Addressed
MDM/Problems Addressed:
88-year-old female with history of peripheral vascular disease on Plavix and hyperlipidemia presenting for generalized weakness and nausea and vomiting with fever.
On exam, patient in no acute distress. Denies any real specific complaints other than nausea. When daughters arrived, notes that she has not been eating or drinking for the past few days, does have dry mucous membranes with dehydration. Overall
benign cardiac, pulmonary, abdominal exam. Minimal tenderness to the upper abdomen. Possible viral source of patient's symptoms, low-grade fever in the emergency department. However, otherwise not meeting SIRS criteria. Will obtain laboratory
analysis, COVID swab, chest x-ray. Patient also with intermittent history of incontinence of urine, will send urinalysis. Will start patient on IV fluids.
18:00- Labs are grossly unremarkable. COVID-negative. Chest x-ray without acute cardiopulmonary disease. When patient went to go urinate, was very weak, unable to bend her legs to get onto the toilet. Patient was escorted back to the bathroom.
Will need to straight cath, however patient will likely require admission, fall risk. On reassessment of patient, continues to have minimal tenderness to the upper abdomen. This reason we will obtain CT abdominal imaging to ensure no acute process
causing patient's symptoms.
*Critical Care Note
Total Time (30-74mins, 75-104mins- exclusive of procedures): Not Applicable
ED Attending Note
-
Portions of this chart may have been created with voice recognition software.� Occasional wrong word or��sound alike� substitutions may have occurred due to the inherent limitations of voice recognition software.
Discharge Plan
Departure
Patient Disposition: Admit
Date of Disposition: 04/10/24
Time of Disposition: 20:18
Presentation/result/management discussed w/ accepting MD/DO: Hospitalist
Discharge Problem:
Weakness, Nausea & vomiting
Interventions
Interventions:
*Risk Screen - Suicide Last Done: 04/10/24 15:52
*General Assessment Last Done: 04/10/24 15:53
*Neglect/Abuse Screening Last Done: 04/10/24 15:52
ED- Fall Risk Assessment Last Done: 04/10/24 16:01
*ED COVID-19 Vaccine History Last Done: 04/10/24 15:53
*Nursing Disposition Last Done: 04/11/24 10:32
ED- Neurological Assessment Last Done: 04/10/24 16:02
ED-Skin Assessment Last Done: 04/10/24 16:02
[2024-04-10] MEDS: TYLENOL 650 MG PO (18:15)
[2024-04-10 19:00] VITALS: BP 153/74
--- NOTE | 2024-04-10 19:00 | EDRN ---
Report received, introduced myself to patient, straight cath performed, patient to go to CT
[2024-04-10 19:13] LABS: Urine Albumin Negative (Neg - Trace); Urine Bilirubin Negative (Negative); Urine Character Clear (Clear); Urine Color Yellow; Urine Glucose Negative (Negative); Urine Ketone 1+ (Negative); Urine Leukocyte Negative (Negative); Urine Nitrite Negative (Negative); Urine Occult Blood Negative (Negative); Urine Specific Gravity 1.015 (<1.030); Urine Urobilinogen Negative (Neg - 1+)
--- NOTE | 2024-04-10 20:56 | HPS.HSE ---
Family Physician
-
Family Physician: Juancho Lacy
Chief Complaint
-
Weakness, Nausea
History of Present Illness
Patient is an 88y F with PMH significant for ASCVD / PAD and autoimmune hepatitis who presents to ED complaining of nausea, poor appetite and weakness. Patient states that she started with GI upset symptoms on Thursday. Her symptoms persisted
through the week with poor appetite and nausea. She had no emesis or diarrhea. No fevers or chills. She felt very weak and notes that she was sleeping poorly. Patient was seen by her physician at [facility] on Thursday and started on Pepcid.
Her symptoms continued and today she was very weak and unable to ambulate. She has had nothing to eat or drink for the past 2 days. She had a single episode of emesis just prior to presentation.
Medical History
Past Medical History
Past Medical History: Reports Other
Additional Past Medical History:
ASCVD / PAD
Peripheral Neuropathy
Breast Cancer s/p Mastectomy, Chemo (2011)
Autoimmune Hepatitis
Past Surgical History: Reports Other
Additional Past Surgical History:
Bilateral Mastectomies
Left Foot / Digital Amputations
LLE Angio / Stents (multiple)
Appendectomy
Social History
Tobacco: Former Smoker (Remote history of smoking.)
Alcohol: Occasional (Rarely.)
Drug: None
Family History
Family History: Not pertinent
Allergies / Home Medications
Allergies reflects when Allergies were last updated in [facility].
Home Medications with original date entered in [facility]
Allergy/Medication List:
Allergies
Allergy/AdvReac Type Severity Reaction Status Date / Time
aspirin Allergy Stomach Verified 04/10/24 15:52
pains
ciprofloxacin [From Cipro] Allergy Nausea / Verified 04/10/24 15:52
Vomiting
pregabalin [From Lyrica] Allergy Nausea / Verified 04/10/24 15:52
Vomiting
vancomycin Allergy Nausea / Verified 04/10/24 15:52
Vomiting
Home Medications
aspirin 81 mg tablet,delayed release 81 mg PO DAILY Blood Clot Prevention/Tx 09/11/23
clopidogrel 75 mg tablet 75 mg PO QPM Blood Clot Prevention/Tx 09/11/23
ferrous sulfate 325 mg (65 mg iron) tablet (iron) 325 mg PO .SEE BELOW Supplement 09/11/23
prednisone 5 mg tablet 5 mg PO DAILY@1500 Anti-Inflammatory 09/11/23
rosuvastatin 10 mg tablet 10 mg PO DAILY High Cholesterol 09/11/23
vit C 250 mg-vit E 90 mg-zinc 40 mg-copper 1 [id number] capsule (PreserVision AREDS-2) 1 cap PO BID Supplement 09/11/23
acetaminophen 500 mg tablet 500 mg PO Q6H PRN pain 04/10/24
cholecalciferol (vitamin D3) 25 mcg (1,000 unit) tablet (Vitamin D3) 25 mcg PO DAILY 04/10/24
duloxetine 30 mg capsule,delayed release (Cymbalta) 30 mg PO DAILY 04/10/24
pantoprazole 40 mg tablet,delayed release (Protonix) 40 mg PO DAILY 04/10/24
sennosides 8.6 mg-docusate sodium 50 mg tablet (Senokot-S) 1 tab-cap PO PRN PRN Constipation 04/10/24
vitamin B complex 1 tab PO DAILY 04/10/24
Review of Systems
-
History Source: Patient
A 12 point ROS was completed and negative except as noted: Yes
Constitutional: Reports Fatigue; Denies Fever or Chills
EENT: Denies Sore Throat
Respiratory: Denies Cough or Trouble Breathing
Cardiac: Denies Chest Pain or Palpitations
Abdomen/GI: Reports Abdominal Pain, Nausea, Vomiting and Anorexia; Denies Diarrhea, Constipated, Bloody Stools or Black Stools
: Denies Dysuria, Frequency or Flank Pain
Musculoskeletal: Denies Joint Pain or Edema
Neurological: Denies Dizzy or Headache
Psych: Denies Depression or Anxiety
Physical Exam
Vital Signs
Vital Signs
Temp Pulse Resp BP Pulse Ox
100.3 F 92 17 153/74 97
04/10/24 18:13 04/10/24 19:15 04/10/24 19:15 04/10/24 19:00 04/10/24 19:15
Physical Exam
General: Other (88y F in no acute distress.)
HEENT: PERRLA and Other (Dry MM.)
Respiratory: Clear; No Wheezes, Rales or Rhonchi
Cardiac: S1/S2, Regular Rhythm and Murmur (II/ SHAYY)
GI: Soft, Non Distended, Normal Bowel Sounds and Other (Mild tenderness in epigastric region / lower abdomen. Pos bowel sounds.)
Musculoskeletal: No Clubbing, No Cyanosis, No Edema and Other (s/p digital amputations on the L.)
Neuro: AO x 3
Laboratory Results
-
04/10/24 16:17
04/10/24 16:17
Laboratory Results
Lactic Acid 1.0 mmol/L (0.7-2.0) 04/10/24 16:17
Total Bilirubin 0.2 mg/dl (0.2-1.3) 04/10/24 16:17
AST 29 U/L (14-36) 04/10/24 16:17
ALT 15 U/L (0-35) 04/10/24 16:17
Alkaline Phosphatase 61 U/L (38-126) 04/10/24 16:17
Impression/Plan
-
A/P: Patient is an 88y F with PMH significant for ASCVD / PAD and autoimmune hepatitis who presents to ED complaining of nausea and fatigue x 4 days.
Viral Gastroenteritis
- Observe overnight for further evaluation and treatment.
- 'Low grade' fever and GI symptoms. No leukocytosis or objective CT findings.
- Supportive care with IVFs, antiemetics, etc.
- Follow for clinical improvement.
Generalized Weakness secondary to the above
Ambulatory Dysfunction secondary to the above
- Patient had difficulty standing / ambulating here in the ED.
- Treat underlying acute illness as noted above.
- PT / OT evaluations.
Autoimmune Hepatitis
- Stable. Maintained on long-term, low-dose prednisone.
- Continue usual prednisone dose with no changes for now.
- Consider 'pulse dose' / IV steroids if hypotension, etc.
Anemia of Chronic Disease
- Stable. Hgb is at / near known baseline.
- Hold PO iron acutely pending improvement in GI symptoms.
- Follow for changes in H&H.
ASCVD
- History of PAD s/p multiple interventions in the LLE specifically.
- No prior heart disease, CVA, etc.
- Continue DAPT, statin, etc.
Peripheral Neuropathy
- Recent change from gabapentin to duloxetine - though patient has yet to start the duloxetine due to her current GI symptoms.
DVT Prophylaxis: SCDs
Code Status: Full
[2024-04-10 21:10] VITALS: BP 155/65
--- NOTE | 2024-04-10 21:19 | EDRN ---
Patient up to use the restroom, used walker to ambulate into the bathroom was able to ambulate without difficulty, patient changed her brief and pad, back in bed resting comfortably, provided her with drink of water and applesauce, call escobar in
reach, family at bedside
[2024-04-10 22:00] VITALS: BP 138/61
[2024-04-10] MEDS: LR 1000 IV (22:53)
--- NOTE | 2024-04-10 22:59 | EDRN ---
Informed patient she will be staying in the ER overnight, got her a hospital, patient ambulated into the restroom to urinate before getting into hospital bed, turned down lights for comfort, call escobar in reach, aware to call if she needs anything.
[2024-04-11] VITALS (12 sets, daily range): BP systolic 132–183; BP diastolic 55–77; PULSE 79; O2SAT 95; BMI 22.8; BMI 22.1
[2024-04-11 06:32] LABS: Hematocrit 28.2 % (37.0-47.0); Hemoglobin 9.2 g/dL (12.0-16.0); Mean Corp Hgb Conc. 32.6 g/dL (33.0-37.0); Mean Corpuscular Hgb 31.5 pg (27.0-31.0); Mean Corpuscular Volume 96.6 fL (81.0-99.0); Mean Platelet Volume 9.6 fL (7.4-10.4); Platelet Count 232 10^3/uL (130-400); Red Blood Cell Count 2.92 10^6/uL (4.20-5.40); Red Cell Dist. Width 13.7 % (11.5-14.5); White Blood Cell Count 7.2 10^3/uL (4.8-10.8)
--- NOTE | 2024-04-11 06:36 | EDRN ---
Morning labs drawn, patient felt like she was incontinent to urine and needed to urinate, patient used walker to get into the restroom, changed her brief and pad, also gave patient a new gown and changed bed linen.
[2024-04-11 07:06] LABS: Blood Urea Nitrogen 14 mg/dl (7-17); Calcium 9.1 mg/dl (8.4-10.2); Carbon Dioxide 22 mmol/L (22-30); Chloride 103 mmol/L (98-107); Estimated Creatinine Clearance 42 ml/min; Glucose 81 mg/dl (70-99); Potassium 3.8 mmol/L (3.5-5.1); Sodium 137 mmol/L (135-145); eGFR > 60.00
[2024-04-11] MEDS: PROTONIX 40 MG PO (08:33)
[2024-04-11] MEDS: VITAMIN D3 (cholecalciferol) 25 MCG PO (08:33)
[2024-04-11] MEDS: ASPIR LOW (ENTERIC COATED) PO ×2 (08:33→08:36)
[2024-04-11] MEDS: TYLENOL 650 MG PO (08:44)
[2024-04-11] MEDS: CRESTOR 10 MG PO (09:25)
[2024-04-11] MEDS: LR 1000 IV (09:26)
[2024-04-11] MEDS: NORVASC 5 MG PO (10:05)
--- NOTE | 2024-04-11 10:10 | PTCARENOTE ---
notified of high BP trend. 5mg PO Norvasc ordered and given at this time. Pt to be transferred to , report sent.
--- NOTE | 2024-04-11 13:21 | PTCARENOTE ---
Received patient from ED. AAOx3, ambulated x1 assit witha walker to her bed. VSS WNL. Denies any pain or discomfort. Oriented to unit, call escobar within reach.
--- NOTE | 2024-04-11 14:44 | W.PN.HOSP.TC ---
Today's Communication/Plan
-
pending placement - cm aware
Assessment / Plan
Assessment / Plan
Physical Exam
General: Other (88y F in no acute distress.)
HEENT: PERRLA and Other (Dry MM.)
Respiratory: Clear; No Wheezes, Rales or Rhonchi
Cardiac: S1/S2, Regular Rhythm and Murmur (II/ SHAYY)
GI: Soft, Non Distended, Normal Bowel Sounds,. Pos bowel sounds
Musculoskeletal: No Clubbing, No Cyanosis, No Edema and Other (s/p digital amputations on the L.)
Neuro: AO x 3
A/P: Patient is an 88y F with PMH significant for ASCVD / PAD and autoimmune hepatitis who presents to ED complaining of nausea and fatigue x 4 days.
Viral Gastroenteritis, resolved
- 'Low grade' fever and GI symptoms. No leukocytosis or objective CT findings.
- Supportive care with IVFs, antiemetics, etc.
- Follow for clinical improvement.
Generalized Weakness secondary to the above
Ambulatory Dysfunction secondary to the above
- Patient had difficulty standing / ambulating here in the ED.
- Treat underlying acute illness as noted above.
- PT / OT evaluations: SNF
Autoimmune Hepatitis
- Stable. Maintained on long-term, low-dose prednisone.
- Continue usual prednisone dose with no changes for now.
- Consider 'pulse dose' / IV steroids if hypotension, etc.
Anemia of Chronic Disease
- Stable. Hgb is at / near known baseline.
- Hold PO iron acutely pending improvement in GI symptoms.
- Follow for changes in H&H.
ASCVD
- History of PAD s/p multiple interventions in the LLE specifically.
- No prior heart disease, CVA, etc.
- Continue DAPT, statin, etc.
Peripheral Neuropathy
- Recent change from gabapentin to duloxetine - though patient has yet to start the duloxetine due to her current GI symptoms.
DVT Prophylaxis: HSQ
Code Status: Full
DC ready CM aware
Anticipated Discharge: Within 24 hours
Subjective/Interval History
-
Date of Service: April 11, 2024
Symptoms resolved, still weak
Objective Data
-
Labs:
Laboratory Results
04/11/24
06:13
WBC 7.2
Hgb 9.2 L
Hct 28.2 L
Plt Count 232
Sodium 137
Potassium 3.8
Chloride 103
Carbon Dioxide 22
BUN 14
Creatinine 0.8
Glucose 81
Calcium 9.1
Vital Signs:
Vital Signs
Temp Pulse Resp BP Pulse Ox
98.6 F 91 18 132/72 98
04/11/24 10:47 04/11/24 10:47 04/11/24 10:47 04/11/24 10:47 04/11/24 10:47
I&O
04/10/24 04/11/24 04/12/24
06:59 06:59 06:59
Output Total 400 / 400
Balance -400 / -400
Review of Systems
-
History Source: Patient
All other systems: Not reviewed unless documented
Data Reviewed
-
CT Scan: Image personally visualized and interpreted and Report Reviewed by me
Labs: Labs Reviewed by me
--- NOTE | 2024-04-11 16:11 | WOUNDNOTE ---
R DORSAL 4TH TOE
--- NOTE | 2024-04-11 16:12 | WOUNDNOTE ---
RAYMUNDO RN note: Patient admitted with weakness, nausea and vomiting.
See H&P for complete history. Lives at [facility].
PMH: PAD, L toes amputation several years ago, Autoimmune hepatitis, neuropathy, ex smoker.
Wound Location and type/assessment: Patient admitted with: R 4th dorsal toe with intact dry tiny scab, suspect related to PAD and rubbing against shoes. Patient states its possible that shoe caused sore. Appears to be stable and not infected.
Patient goes to [facility] Garza affiliated with [facility], patient states. She plans to follow up with Dr. Garza upon discharge. Heels and sacrum are intact.
Appetite: Fair.
Pressure redistribution devices in place: Accumax
Plan: Recommend keep area dry, apply swab of Betadine to scab and silicone foam or dry gauze dressing change q 2 days and prn soilage. Will confirm orders with hospitalist and update nurse. Updated care plan and will follow as needed. Note to case
management of equipment requested for discharge: None.
Recommend follow up with [facility].
[2024-04-11] MEDS: HEPARIN 5000 UNITS SC ×2 (17:33→23:16)
[2024-04-11] MEDS: PLAVIX 75 MG PO (17:33)
[2024-04-11] MEDS: DELTASONE 5 MG PO (17:33)
[2024-04-12 04:47] VITALS: BP 142/79; BP 143/79; BP 148/77; PULSE 101; PULSE 78; PULSE 90
[2024-04-12 07:25] VITALS: BP 138/97; BP 140/70; BP 143/75; PULSE 72; PULSE 80; PULSE 96
[2024-04-12 08:12] LABS: ALT (SGPT) 13 U/L (0-35); AST (SGOT) 26 U/L (14-36); Albumin 3.5 g/dl (3.5-5.0); Alkaline Phosphatase 59 U/L (38-126); Blood Urea Nitrogen 14 mg/dl (7-17); Calcium 9.4 mg/dl (8.4-10.2); Carbon Dioxide 24 mmol/L (22-30); Chloride 103 mmol/L (98-107); Estimated Creatinine Clearance 37 ml/min; Glucose 91 mg/dl (70-99); Potassium 3.8 mmol/L (3.5-5.1); Sodium 138 mmol/L (135-145); Total Bilirubin 0.1 mg/dl (0.2-1.3); Total Protein 5.9 g/dl (6.3-8.2); eGFR > 60.00
[2024-04-12] MEDS: ASPIR LOW (ENTERIC COATED) 81 MG PO (08:43)
[2024-04-12] MEDS: NORVASC 5 MG PO (08:43)
[2024-04-12] MEDS: VITAMIN D3 (cholecalciferol) 25 MCG PO (08:43)
[2024-04-12] MEDS: CRESTOR 10 MG PO (08:43)
[2024-04-12] MEDS: PROTONIX 40 MG PO (08:43)
[2024-04-12 09:51] LABS: Hematocrit 29.8 % (37.0-47.0); Hemoglobin 9.7 g/dL (12.0-16.0); Mean Corp Hgb Conc. 32.6 g/dL (33.0-37.0); Mean Corpuscular Hgb 30.8 pg (27.0-31.0); Mean Corpuscular Volume 94.6 fL (81.0-99.0); Mean Platelet Volume 9.6 fL (7.4-10.4); Platelet Count 267 10^3/uL (130-400); Red Blood Cell Count 3.15 10^6/uL (4.20-5.40); Red Cell Dist. Width 13.7 % (11.5-14.5); White Blood Cell Count 5.8 10^3/uL (4.8-10.8)
--- NOTE | 2024-04-12 10:21 | W.PN.HOSP.TC ---
Addendum entered and electronically signed by Tejas Jewell MD 04/12/24 15:50:
[id number]
Original Note:
Today's Communication/Plan
-
5mg amlodipine
dc ready
Assessment / Plan
Assessment / Plan
Physical Exam
General: Other (88y F in no acute distress.)
HEENT: PERRLA and Other (Dry MM.)
Respiratory: Clear; No Wheezes, Rales or Rhonchi
Cardiac: S1/S2, Regular Rhythm and Murmur (II/ SHAYY)
GI: Soft, Non Distended, Normal Bowel Sounds,. Pos bowel sounds
Musculoskeletal: No Clubbing, No Cyanosis, No Edema and Other (s/p digital amputations on the L.)
Neuro: AO x 3
A/P: Patient is an 88y F with PMH significant for ASCVD / PAD and autoimmune hepatitis who presents to ED complaining of nausea and fatigue x 4 days.
Viral Gastroenteritis, resolved
- 'Low grade' fever and GI symptoms. No leukocytosis or objective CT findings.
- Supportive care with IVFs, antiemetics, etc.
- Follow for clinical improvement.
Generalized Weakness secondary to the above
Ambulatory Dysfunction secondary to the above
- Patient had difficulty standing / ambulating here in the ED.
- Treat underlying acute illness as noted above.
- PT / OT evaluations: SNF
Autoimmune Hepatitis
- Stable. Maintained on long-term, low-dose prednisone.
- Continue usual prednisone dose with no changes for now.
- Consider 'pulse dose' / IV steroids if hypotension, etc.
Anemia of Chronic Disease
- Stable. Hgb is at / near known baseline.
- Hold PO iron acutely pending improvement in GI symptoms. Can resume on discharge
- Follow for changes in H&H.
ASCVD
- History of PAD s/p multiple interventions in the LLE specifically.
- No prior heart disease, CVA, etc.
- Continue DAPT, statin, etc
Hypertension, essential
� Start amlodipine 5 mg daily
Peripheral Neuropathy
- Recent change from gabapentin to duloxetine - though patient has yet to start the duloxetine due to her current GI symptoms.
DVT Prophylaxis: HSQ
Code Status: Full
DC ready CM aware
More than 30 minutes spent in discharge including
Final examination of the patient
Summarizing hospital stay
Instructions for continuing care to all relevant caregivers
Preparation of discharge records, prescriptions, and referral forms
Total time spent (35 in minutes):
Anticipated Discharge: Today
Subjective/Interval History
-
Date of Service: April 12, 2024
No acute events
Objective Data
-
Labs:
Laboratory Results
04/12/24 04/12/24
06:56 09:26
WBC Cancelled 5.8
Hgb Cancelled 9.7 L
Hct Cancelled 29.8 L
Plt Count Cancelled 267
Sodium 138
Potassium 3.8
Chloride 103
Carbon Dioxide 24
BUN 14
Creatinine 0.9
Glucose 91
Calcium 9.4
Total Bilirubin 0.1 L
AST 26
ALT 13
Alkaline Phosphatase 59
Vital Signs:
Vital Signs
Temp Pulse Resp BP Pulse Ox
98.4 F 72 16 143/75 98
04/12/24 07:25 04/12/24 08:43 04/12/24 07:25 04/12/24 08:43 04/12/24 07:25
I&O
04/11/24 04/12/24 04/13/24
06:59 06:59 06:59
Intake Total 480 / 480
Output Total 400 / 400 120 / 120
Balance -400 / -400 360 / 360
Review of Systems
-
History Source: Patient
All other systems: Not reviewed unless documented
Data Reviewed
-
CT Scan: Image personally visualized and interpreted and Report Reviewed by me
Labs: Labs Reviewed by me
--- NOTE | 2024-04-12 10:22 | W.DS.TRANS ---
DC Summary - Sight Effects Specialist
-
Discharge Instructions:
Discharge Diagnosis/Procedures Viral Gastroenteritis, resolved
Generalized Weakness secondary to the above
Ambulatory Dysfunction secondary to the above
Essential Hypertension
Diet Low Fiber,Low Cholesterol,Low Fat
Activity As tolerated
Instructions:
Stand-Alone Forms:
Changes to Home Medications: Yes
Discharge Medications:
DC Medications w/original date entered in [employer]
aspirin 81 mg tablet,delayed release 81 mg PO DAILY Blood Clot Prevention/Tx 09/11/23
clopidogrel 75 mg tablet 75 mg PO QPM Blood Clot Prevention/Tx 09/11/23
ferrous sulfate 325 mg (65 mg iron) tablet (iron) 325 mg PO DAILY Supplement 09/11/23
prednisone 5 mg tablet 5 mg PO DAILY@1500 Anti-Inflammatory 09/11/23
rosuvastatin 10 mg tablet 10 mg PO DAILY High Cholesterol 09/11/23
vit C 250 mg-vit E 90 mg-zinc 40 mg-copper 1 [id number] capsule (PreserVision AREDS-2) 1 cap PO BID Supplement 09/11/23
acetaminophen 500 mg tablet 1,000 mg PO BID 04/10/24
cholecalciferol (vitamin D3) 25 mcg (1,000 unit) tablet (Vitamin D3) 25 mcg PO DAILY 04/10/24
duloxetine 30 mg capsule,delayed release (Cymbalta) 30 mg PO DAILY 04/10/24
pantoprazole 40 mg tablet,delayed release (Protonix) 40 mg PO DAILY 04/10/24
sennosides 8.6 mg-docusate sodium 50 mg tablet (Senokot-S) 1 tab-cap PO HS 04/10/24
vitamin B complex 1 tab PO DAILY 04/10/24
amlodipine 5 mg tablet 5 mg PO DAILY #0 tabs 04/12/24
Home Medication Changes
amlodipine 5 mg tablet 5 mg PO DAILY #0 tabs 04/12/24
Pending Results: No
[2024-04-12] MEDS: HEPARIN 5000 UNITS SC (12:35)
--- NOTE | 2024-04-12 13:34 | CM ---
CM met with Krystal at bedside yesterday to complete IA. Documentation was not saved.
Krystal lives at [facility]. She had a fall in her apartment due to weakness from viral gastroenteritis and was admitted to [facility] status. Typically Krystal is (I) ambulation with a RW and a prosthetic shoe. She was walking to the
dining room for meals some days, and other days she ate in her apartment.
Yesterday when we spoke, Krystal advised that she has several daughters who she says are 'always around' and able to help her. Today one of her daughters was visiting and was not volunteering family assistance; she would like Krystal to be seen
by PT and OT prior to discharge.
TT sent to PT and OT requesting visit today for possible discharge.
CM to follow.
[2024-04-12 15:02] VITALS: BP 119/57; PULSE 102; O2SAT 98
[2024-04-12 15:07] VITALS: BP 119/57; PULSE 78; O2SAT 100
[2024-04-12 15:17] VITALS: BP 126/59
--- NOTE | 2024-04-12 15:18 | W.DS.TRANS ---
DC Summary - Scoop Filler
-
Discharge Instructions:
Discharge Diagnosis/Procedures Viral Gastroenteritis, resolved
Generalized Weakness secondary to the above
Ambulatory Dysfunction secondary to the above
Essential Hypertension
Diet Low Fiber,Low Cholesterol,Low Fat
Activity As tolerated
Instructions:
Stand-Alone Forms:
Changes to Home Medications: Yes
Discharge Medications:
DC Medications w/original date entered in [employer]
aspirin 81 mg tablet,delayed release 81 mg PO DAILY Blood Clot Prevention/Tx 09/11/23
clopidogrel 75 mg tablet 75 mg PO QPM Blood Clot Prevention/Tx 09/11/23
ferrous sulfate 325 mg (65 mg iron) tablet (iron) 325 mg PO DAILY Supplement 09/11/23
prednisone 5 mg tablet 5 mg PO DAILY@1500 Anti-Inflammatory 09/11/23
rosuvastatin 10 mg tablet 10 mg PO DAILY High Cholesterol 09/11/23
vit C 250 mg-vit E 90 mg-zinc 40 mg-copper 1 [id number] capsule (PreserVision AREDS-2) 1 cap PO BID Supplement 09/11/23
acetaminophen 500 mg tablet 1,000 mg PO BID 04/10/24
cholecalciferol (vitamin D3) 25 mcg (1,000 unit) tablet (Vitamin D3) 25 mcg PO DAILY 04/10/24
duloxetine 30 mg capsule,delayed release (Cymbalta) 30 mg PO DAILY 04/10/24
pantoprazole 40 mg tablet,delayed release (Protonix) 40 mg PO DAILY 04/10/24
sennosides 8.6 mg-docusate sodium 50 mg tablet (Senokot-S) 1 tab-cap PO HS 04/10/24
vitamin B complex 1 tab PO DAILY 04/10/24
amlodipine 5 mg tablet 5 mg PO DAILY #0 tabs 04/12/24
Home Medication Changes
amlodipine 5 mg tablet 5 mg PO DAILY #0 tabs 04/12/24
Pending Results: No
--- NOTE | 2024-04-12 16:17 | CM ---
Chart reviewed
CM met with the patient at bedside; IA completed
Pt resides at [facility] apartment on the 2nd floor with elevator access and no WILBER
BLOOD TESTER patient reports independence at baseline
Pt has no previous SNF hx, does have a spc, r/w, & w/c for use if needed and has VN hx with [facility]
Pt confirms prescription coverage and rx's are filled at [facility] the [facility]
Pt has been cleared medically for d/c; recommendation is for VN - [facility] per pt request.
Smith reviewed with patient and daughter; Signed copy placed on chart and copy provided to patient.
Pt daughter is at bedside to transport patient home at time of d/c.
Pt PCP-Juancho Lacy
PLAN; d/c home with [facility] for RN, PT and OT services. Family requests PT Dylan, as he has provided services in the past.
[facility]
[2024-04-12] MEDS: PLAVIX 75 MG PO (17:01)
[2024-04-12] MEDS: HEPARIN SC (17:01)
[2024-04-12] MEDS: DELTASONE 5 MG PO (17:01)
== END 2024-04-12 17:54 | disposition home health service (06) ==
LOC: 4 EAST ACU 21:07
PROVIDERS: ADMITTING PHYSICIAN Hospitalist; ATTENDING PHYSICIAN Internal Medicine; EMERGENCY PHYSICIAN Student in an Organized Health Care Education/Training Program; FAMILY PHYSICIAN Internal Medicine Geriatric Medicine
DX: A08.4 Viral intestinal infection, unspecified (principal); R50.9 Fever, unspecified; K75.4 Autoimmune hepatitis; E78.5 Hyperlipidemia, unspecified; I73.9 Peripheral vascular disease, unspecified; R53.1 Weakness; R11.2 Nausea with vomiting, unspecified; I25.10 Atherosclerotic heart disease of native coronary artery without angina pectoris; G62.9 Polyneuropathy, unspecified; R26.2 Difficulty in walking, not elsewhere classified; D63.8 Anemia in other chronic diseases classified elsewhere; K44.9 Diaphragmatic hernia without obstruction or gangrene; J90 Pleural effusion, not elsewhere classified; N28.1 Cyst of kidney, acquired; N26.1 Atrophy of kidney (terminal); I70.90 Unspecified atherosclerosis; K57.90 Diverticulosis of intestine, part unspecified, without perforation or abscess without bleeding; I10 Essential (primary) hypertension; Z79.02 Long term (current) use of antithrombotics/antiplatelets; Z85.3 Personal history of malignant neoplasm of breast; Z87.891 Personal history of nicotine dependence; Z60.2 Problems related to living alone; Z92.21 Personal history of antineoplastic chemotherapy; Z90.10 Acquired absence of unspecified breast and nipple; Z88.6 Allergy status to analgesic agent; Z88.1 Allergy status to other antibiotic agents; Z88.8 Allergy status to other drugs, medicaments and biological substances; Z79.52 Long term (current) use of systemic steroids; Z11.52 Encounter for screening for COVID-19
CPT/HCPCS: 71046; 74177; 80048; 80053; 81003; 83605; 85025; 85027; 87502; 87811; 96360; 96361; 97162; 97166; 97530; 97535; 99285; G0378; Q9967

== ENCOUNTER 2025-02-26 14:53 | Emergency (ER) | payer MEDICARE, OTHER, SELFPAY ==
[2025-02-26 14:55] VITALS: BMI 21.5
[2025-02-26 14:57] VITALS: BP 158/60
[2025-02-26 15:00] VITALS: BP 156/56; BP 158/60
[2025-02-26 15:15] LABS: Hematocrit 34.9 % (37.0-47.0); Hemoglobin 11.3 g/dL (12.0-16.0); Mean Corp Hgb Conc. 32.4 g/dL (33.0-37.0); Mean Corpuscular Volume 100.3 fL (81.0-99.0); Nucleated Red Blood Cells % 0 %; Platelet Count 246 10^3/uL (130-400); Red Cell Dist. Width 13.8 % (11.5-14.5)
--- NOTE | 2025-02-26 15:24 | ED.GENMED ---
History of Present Illness
General
Chief Complaint: Fatigue
Source: patient
Exam Limitations: none
Time Seen by Provider: 02/26/25 15:12
Nursing documentation reviewed up to this point in time: agreed with
History of Present Illness
History of Present Illness:
89-year-old female with past medical history of autoimmune hepatitis breast cancer, b/l mastectomy , PAD with popliteal stent presents to the ER for evaluation. Patient is from [place] over the past 2 weeks has felt very fatigued has had no
energy or decreased appetite. She is felt a little nauseous. She was not taking her all of her medicines because she did not feel well. She was constipated but daughter reports that has since resolved. She felt that she was urinating less
because she was taking less water in. She denied any urinary frequency urgency or dysuria.
She denies any chest pain shortness of breath. She denies any abdominal pain. She denies any headache lightheaded dizziness.
Past History
Past History
ED Past Medical History: Other (Autoimmune hepatitis)
ED Past Surgical History: Gynecological and Orthopedic
Social History
Tobacco: Former smoker
Alcohol: Occasional
Drug: None
Personal: Other
Living: other
Employment: Other
Family History
Family History: Other
Phy Exam
General Physical Exam
General Presentation: no apparent distress
General age: appears stated age
General Skin: warm and dry
General Habitus: normal
General Mental: alert
General Hydration: dry mucous membranes
Cardiovascular Exam
Cardiovascular Exam: regular rate/rhythm, no murmur and normal peripheral pulses
Pulmonary Exam
Pulmonary Exam: lungs clear and no respiratory distress
Neurological Exam
Neurological Exam: alert and oriented x3
Musculoskeletal Exam
Musculoskeletal Exam: full ROM
Skin Exam
Skin Exam: normal color and warm/dry
Psychiatric Exam
Psychiatric Exam: normal mood/affect
Course
Orders/Labs/Results
Orders:
Orders
02/26/25 14:59
COVID-19 Antigen Urgent
Source: Nasal Swab
Complete Blood Count/With Diff Urgent
Comprehensive Metabolic Panel Urgent
TSH Reflex To Free T4 Urgent
Comment: ADD ON
Troponin I Urgent
Comment: ADD ON
Influenza A+B Rapid Molecular Urgent
ART Source: Nasal Swab
Specimen Description:
02/26/25 15:48
Add On- LAB Urgent
Tests Added?: troponin
02/26/25 15:55
Add On- LAB Urgent
Tests Added?: tsh with reflexive t4
02/26/25 16:10
UA Reflex to Culture [Urinalysis Reflex To Culture] Urgent
Date Specimen was Collected: 02/26/25
Time Specimen was Collected: 16:03
Urine Microscopic Reflex Cult Urgent
Urine Culture Urgent
ART Source: U
Specimen Description:
Obtained by: Random
Date Specimen was Collected: 02/26/25
Time Specimen was Collected: 16:03
02/26/25 17:40
Electrocardiogram (*1) Stat
Reason for Study: Other
Other Reason for Exam: chest pain
EKG- Treatment ONCE
Abnormal Lab Results
02/26/25 02/26/25
14:59 16:10
RBC 3.48 L 10^6/uL
(4.20-5.40)
Hgb 11.3 L g/dL
(12.0-16.0)
Hct 34.9 L %
(37.0-47.0)
MCV 100.3 H fL
(81.0-99.0)
MCH 32.5 H pg
(27.0-31.0)
MCHC 32.4 L g/dL
(33.0-37.0)
MPV 10.5 H fL
(7.4-10.4)
Absolute Lymphs (auto) 0.7 L 10^3/uL
(1.2-3.4)
Absolute Monos (auto) 0.8 H 10^3/uL
(0.1-0.6)
Neutrophils % 75.4 H %
(42.2-75.2)
Lymphocytes % 10.7 L %
(20.5-51.1)
Monocytes % 11.4 H %
(1.7-9.3)
BUN 20 H mg/dl
(7-17)
Creatinine 1.1 H mg/dL
(0.6-1.0)
Ur Occult Blood Reflex 2+ A
(Negative)
Leukocyte Esterase Rfl 2+ A
(Negative)
Urine RBC 3-6 A /HPF
(0-2)
Urine Bacteria (Reflex) Few A
(Negative)
Urine Albumin (Reflex) 2+ A
(Neg - Trace)
02/26/25 14:59
02/26/25 14:59
Vital Signs
Initial and Last Documented VS:
Initial Vital Signs
BP
158/60
02/26/25 14:57
Last Documented Vital Signs
Temp Pulse Resp BP Pulse Ox
98.2 F 92 15 157/60 100
02/26/25 15:00 02/26/25 18:01 02/26/25 18:01 02/26/25 17:00 02/26/25 15:27
MDM/Problems Addressed
Differential Diagnosis Includes:
Not limited to anemia dehydration UTI, infection
MDM/Problems Addressed:
As documented patient is a 9-year-old female with progressive patient fatigue for the past 2 weeks, decreased appetite mild nausea. No chest pain or shortness of breath no recent illness fever chills. Patient presents awake alert no acute distress
afebrile stable vital signs white count normal hemoglobin 11.3 which is improved from baseline. No reports of GI bleed or black stool. Patient was hydrated here BUN 20 creatinine 1.1 urinalysis negative for UTI COVID and flu are negative. Patient
has had PVCs on the monitor however not symptomatic denies any palpitations or lightheadedness.
No true cause for patient symptoms however patient is very well-appearing Case reviewed ED physician will DC with outpatient follow-up with family doctor as well as cardiology she does not have a coat room attendant recommended cardiology here in the ER.
Case reviewed ED physician.
Chronic conditions affecting care:
Diverticulitis history
*Pulse Oximetry
SaO2: 100
Oxygen Mode of Delivery: Room air
Patient hypoxic: no
*EKG
Interpreted by ED Provider?: Yes
Heart Rate: 90
Rate: normal
Rhythm: sinus
Ischemia: non-specific ST changes
*Critical Care Note
Total Time (30-74mins, 75-104mins- exclusive of procedures): Not Applicable
ED Attending Note
-
Portions of this chart may have been created with voice recognition software.� Occasional wrong word or��sound alike� substitutions may have occurred due to the inherent limitations of voice recognition software.
Discharge Plan
Departure
Patient Disposition: Home (Routine Discharge)
Date of Disposition: 02/26/25
Time of Disposition: 18:23
Patient with high blood pressure during this ER visit?: Yes
Condition: Fair
Covid-19: Not Applicable
Discharge Problem:
Fatigue
Instructions: Fatigue (DC), BLOOD PRESSURE
Prescriptions:
No Action
prednisone 5 mg Tablet
5 mg PO DAILY@1500
clopidogrel 75 mg Tablet
75 mg PO QPM
aspirin 81 mg Tablet,Delayed Release (Dr/Ec)
81 mg PO DAILY
ferrous sulfate [iron] 325 mg (65 mg iron) Tablet
325 mg PO DAILY
rosuvastatin 10 mg Tablet
10 mg PO DAILY
PreserVision AREDS-2 250-90-40-1 mg Capsule
1 cap PO BID
acetaminophen 500 mg Tablet
1,000 mg PO BID
pantoprazole [Protonix] 40 mg Tablet,Delayed Release (Dr/Ec)
40 mg PO DAILY
vitamin B complex Tablet
1 tab PO DAILY
duloxetine [Cymbalta] 30 mg Capsule,Delayed Release(Dr/Ec)
30 mg PO DAILY
cholecalciferol (vitamin D3) [Vitamin D3] 25 mcg (1,000 unit) Tablet
25 mcg PO DAILY
sennosides-docusate sodium [Senokot-S] 8.6-50 mg tablet
1 tab-cap PO HS
amlodipine 5 mg Tablet
5 mg PO DAILY Qty: 0 0RF
Referrals:
Noe Blake MD [Family Provider, Internal Medicine]
Derick Sultana MD [Active, Cardiology]
Activity Restrictions/Additional Instructions:
As discussed there were no acute causes for this identified for your symptoms. Please follow-up with your family doctor for continued valuation. In addition your EKG showed several PVCs. Please feel with cardiology for this. Return if any
worsening of symptoms
Interventions
Interventions:
*Risk Screen - Suicide Last Done: 02/26/25 14:55
*General Assessment Last Done: 02/26/25 14:55
*Neglect/Abuse Screening Last Done: 02/26/25 14:55
*ED- Fall Risk Assessment Last Done: 02/26/25 14:55
*ED COVID-19 Vaccine History Last Done: 02/26/25 14:55
Discharge Date and Time
Print Language: CYPRIOT
[2025-02-26 15:29] LABS: ALT (SGPT) 14 U/L (0-35); AST (SGOT) 29 U/L (14-36); Albumin 3.9 g/dl (3.5-5.0); Alkaline Phosphatase 88 U/L (38-126); Blood Urea Nitrogen 20 mg/dl (7-17); Calcium 9.6 mg/dl (8.4-10.2); Carbon Dioxide 26 mmol/L (22-30); Chloride 105 mmol/L (98-107); Estimated Creatinine Clearance 30 ml/min; Glucose 89 mg/dl (70-99); Potassium 4.2 mmol/L (3.5-5.1); Sodium 138 mmol/L (135-145); Total Protein 6.5 g/dl (6.3-8.2); eGFR 48.63
[2025-02-26 15:33] LABS: COVID-19 Antigen Negative (Negative)
[2025-02-26 16:00] VITALS: BP 148/83
[2025-02-26 16:21] LABS: Troponin I 0.020 ng/ml
[2025-02-26 16:23] LABS: Urine Character Clear (Clear)
[2025-02-26 17:00] VITALS: BP 157/60
== END 2025-02-26 19:07 | disposition home or self-care (01) ==
LOC: EMR 14:53
PROVIDERS: Emergency Medicine; Nurse Practitioner; EMERGENCY PHYSICIAN Emergency Medicine; FAMILY PHYSICIAN Internal Medicine Geriatric Medicine
DX: R11.0 Nausea (principal); R53.83 Other fatigue; R63.0 Anorexia; R07.9 Chest pain, unspecified; Z11.52 Encounter for screening for COVID-19; R03.0 Elevated blood-pressure reading, without diagnosis of hypertension; K75.4 Autoimmune hepatitis; K57.92 Diverticulitis of intestine, part unspecified, without perforation or abscess without bleeding; M19.90 Unspecified osteoarthritis, unspecified site; M81.0 Age-related osteoporosis without current pathological fracture; Z79.82 Long term (current) use of aspirin; Z85.3 Personal history of malignant neoplasm of breast; Z87.891 Personal history of nicotine dependence; Z90.13 Acquired absence of bilateral breasts and nipples; Z88.6 Allergy status to analgesic agent; Z88.1 Allergy status to other antibiotic agents; Z88.8 Allergy status to other drugs, medicaments and biological substances
CPT/HCPCS: 99284; 80053; 81003; 81015; 84443; 84484; 85025; 87086; 87502; 87811; 93005